=== PATIENT | male | born 1980 | race Two or more races ===

== ENCOUNTER 2019-06-05 18:28 | Emergency (ER) | payer SELFPAY ==
[~2019-06-05] VITALS: Ht 177.8 cm; Wt 127.0 kg
[2019-06-05 21:31] VITALS: BP 135/97
== END 2019-06-05 22:06 | disposition home or self-care (01) ==
LOC: ER 18:28
DX: T23.021A Burn of unspecified degree of single right finger (nail) except thumb, initial encounter (principal); T65.91XA Toxic effect of unspecified substance, accidental (unintentional), initial encounter; Y93.89 Activity, other specified; Y99.8 Other external cause status; Y92.89 Other specified places as the place of occurrence of the external cause